=== PATIENT | female | born 1985 | race Caucasian/White ===

== ENCOUNTER 2018-07-12 17:06 | Emergency (ER) | payer BC, OTHER ==
[~2018-07-12] VITALS: Ht 162.6 cm; Wt 73.6 kg
[2018-07-12 17:12] VITALS: Ht 162.6 cm; Wt 73.6 kg
[2018-07-12] MEDS ORDERED: CHOL200056 PO (17:51)
[2018-07-12] MEDS ORDERED: FLUO10TA PO ×2 (17:51→17:55)
[2018-07-12] MEDS ORDERED: PYRI50TA15 PO (17:52)
--- NOTE | 2018-07-12 18:36 | ERD ---
ER Documentation Chief Complaint Chief Complaint dizziness and nausea since tuesday , sent from clinic for low platelets HPI This is a 33-year-old female with a past medical history of depression, anxiety, previous appendectomy who is presenting with 3 to 4 days of feeling generally unwell with gas-like epigastric discomfort, nausea but no vomiting, a few episodes of loose watery brown nonbloody diarrhea, and intermittent lighth eadedness. The patient went to an urgent care today where a CBC was completed. She was reported to have low platelets and instructed to come to the emergency department for further evaluation of this. The patient reports suddenly feeling very anxious with palpitations and lightheadedness. She reports that she had an anxiety attack on the way over here and continues to feel very anxious. The p atient denies any dysuria or hematuria or urgency or frequency. She reports having a test completed at the urgent care, which was negative. She denies any vaginal bleeding or discharge or burning or pain. The patient denies feeling sick recently. The patient denies fever or chills. The patient has had no headache or vision changes. The patient does not endorse neck or back pain. The patient has had no chest pain or trouble breathing. The patient has had no focal deficits. The patient has had no weakness or numbness or tingling to the face or extremities. ROS All systems reviewed and are negative except as per history of present illness. Medications Home Meds Reported Medications Fluoxetine Hcl* (Fluoxetine Hcl*) 10 Mg Tablet, 10 MG PO DAILY, TAB 07/12/18 Pyridoxine Hcl (Vitamin B6) 50 Mg Tab, 50 MG PO DAILY, TAB 07/12/18 Cholecalciferol (Vitamin D3) (Vitamin D-3) 2,000 Unit Tablet, 2000 UNIT PO DAILY, TAB 07/12/18 Discontinued Reported Medications Fluoxetine Hcl* (Prozac*) 10 Mg Tablet, 15 MG PO DAILY, TAB 07/12/18 Allergies Allergies: Coded Allergies: morphine (Verified Allergy, Unknown, 07/12/18) Uncoded Allergies: ALL ANTIBIOTICS (Adverse Reaction, Unknown, NAUSEA, 07/12/18) PMhx/Soc History of Surgery: Yes (APPENDECTOMY) Anesthesia Reaction: No Hx Neurological Disorder: No Hx Respiratory Disorders: No Hx Cardiac Disorders: No Hx Psychiatric Problems: Yes (Depression, anxiety) Hx Miscellaneous Medical Probl: No Hx Alcohol Use: No Hx Substance Use: No Hx Tobacco Use: No Smoking Status: Never smoker FmHx Family History: No diabetes Physical Exam Vitals Vital Signs Date Temp Pulse Resp B/P (MAP) Pulse Ox O2 O2 Flow FiO2 Time Delivery Rate 07/12/18 98.1 75 18 133/84 100 17:12 (100) Physical Exam Const: No acute distress Head: Atraumatic Eyes: Normal Conjunctiva ENT: Normal External Ears, Nose and Mouth. Neck: Full range of motion. No meningismus. Resp: Clear to auscultation bilaterally Cardio: Regular rate and rhythm, no murmurs Abd: Soft, non distended. Mild epigastric discomfort without exquisite tenderness. No guarding or rebound. Normal bowel sounds Skin: No petechiae or rashes Back: No midline or flank tenderness Ext: No cyanosis, or edema Neur: Awake and alert Psych: Anxious Result Diagram: 07/12/18 1754 Results 24 hrs Laboratory Tests Test 07/12/18 17:45 07/12/18 17:51 07/12/18 17:52 Urine Color YELLOW Urine Clarity SLIGHTLY CLOUDY Urine pH 9.0 Urine Specific [place] 1.011 Urine Ketones NEGATIVE mg/dL Urine Nitrite NEGATIVE mg/dL Urine Bilirubin NEGATIVE mg/dL Urine Urobilinogen NEGATIVE mg/dL Urine Leukocyte Esterase NEGATIVE Katelyn/ul Urine Microscopic RBC 1 /HPF Urine Microscopic WBC 3 /HPF Urine Bacteria FEW /HPF Urine Mucus FEW /HPF Urine Hemoglobin NEGATIVE mg/dL Urine Glucose NEGATIVE mg/dL Urine Total Protein NEGATIVE mg/dl White Blood Count 10.2 10^3/ul Red Blood Count 4.38 10^6/ul Hemoglobin 12.0 g/dl Hematocrit 38.8 % Mean Corpuscular Volume 88.6 fl Mean Corpuscular Hemoglobin 27.4 pg Mean Corpuscular 30.9 g/dl Hemoglobin Concent Red Cell Distribution Width 13.2 % Platelet Count 211 10^3/UL Mean Platelet Volume 12.0 fl Immature Granulocytes % 0.400 % Neutrophils % 65.2 % Lymphocytes % 23.0 % Monocytes % 8.9 % Eosinophils % 2.0 % Basophils % 0.5 % Nucleated Red Blood Cells % 0.0 /100WBC Immature Granulocytes # 0.040 10^3/ul Neutrophils # 6.6 10^3/ul Lymphocytes # 2.3 10^3/ul Monocytes # 0.9 10^3/ul Eosinophils # 0.2 10^3/ul Basophils # 0.1 10^3/ul Nucleated Red Blood Cells # 0.0 10^3/ul POC Beta HCG, Qualitative NEGATIVE Procedures/MDM MDM The patient's presentation warrants further investigation. Previous medical records, if available, were reviewed. LABS The patient's laboratory testing was obtained and reviewed. No emergent rosemarie tment was required unless described below. CBC: No E/o systemic infection or severe anemia or thrombocytopenia Chemistry: No E/o severe acidosis or alkalosis or renal failure or liver disease or diabetic ketoacidosis PT/INR: No E/o significant coagulopathy Urine: No E/o acute infection or hematuria TREATMENT/DISPOSITION The patient's primary concern was her reported thrombocytopenia. The patient's CBC was redrawn and the test was repeated. The patient is not thrombocytopenic. The patient presents with mild epigastric abdominal pain with a sensation of gas, nausea and diarrhea. Gastroenteritis is certainly a possibility, though this is a diagnosis of exclusion. The patient was evaluated fully. The patient does not have any evidence of peritonitis. The patient does not have clinical symptoms concerning for mesenteric ischemia or ischemic colitis. The patient does not have right upper quadrant tenderness, and I have low suspicion for gallstones, cholecystitis or biliary colic. The patient does not have any epigastric pain. I have low suspicion for gastritis, PUD or GERD. The patient does not have left upper quadrant tenderness. I have low suspicion for pancreatitis. The patient does not have any right lower quadrant tenderness, or periumbilical tenderness. I have low suspicion for appendicitis. The patient does not have suprapubic tenderness. I have decreased suspicion for cystitis. The patient does not have any left lower quadrant tenderness, and I have low suspicion for diverticulosis or diverticulitis. The patient does not have any flank tenderness. The patient does not have gross hematuria. I have decreased suspicion for nephrolithiasis or renal colic. The patient does not have any palpable pulsatile mass or severe abdominal pain radiating to the back. I have low suspicion for aortic aneurysm, dissection or rupture. The patient does not have any vaginal complaints. I have low suspicion for sexually transmitted infection or PID or tubo-ovarian abscess or ectopic . DISCHARGE Upon reevaluation of the patient, symptoms have improved. No emergent diagnoses were identified. At this time, I feel that the patient stable for discharge. The patient was instructed to follow-up with a primary care physician in 1-3 days. The patient will be given strict precautions with which to return to the emergency department. Prescriptions: Zofran The patient's blood pressure was elevated at greater than 120/80 while in the emergency department. The patient was otherwise stable with no evidence of hypertensive urgency or emergency. The patient does not require admission for blood pressure control. I have discussed with the patient the risks of hypertension. I have instructed the patient to return to the ER for any new or worsening symptoms including chest pain, shortness of breath, headache, blurred vision, confusion, nausea, vomiting or LOC. I have advised the patient to follow up with the primary care physician for outpatient monitoring and treatment for hypertension in 1-3 days. Disclaimer: Inadvertent spelling and grammatical errors are likely due to EHR/dictation software use and do not reflect on the overall quality of patient care. Note that the electronic time recorded on this note does not necessarily reflect the actual time of the patient encounter. Departure Diagnosis: Primary Impression: Encounter for laboratory test Additional Impressions: Nausea Bloating Diarrhea Diarrhea type: unspecified type Qualified Codes: R19.7 - Diarrhea, unspecified Condition: Stable Patient Instructions: Nausea, Treating Diarrhea Additional Instructions: Thank you for for coming to [facility] for your care today. Please ask your nurse or provider if you have questions about your care today and do not leave until all your questions have been answered. Please use any medications given as directed and follow-up with your doctor (or the doctor you were referred to) in the next 1-3 days. If you do not have a primary care doctor you may follow up at the [facility] or [facility] clinic (listed below). You may also use motrin and tylenol as needed for fever and/or pain unless instructed otherwise by your provider or nurse. Indications for more urgent follow-up have been discussed, but you may return to the Emergency Department at ANY time for any worrisome or worsening symptoms. If you have abdominal pain, please know that no test or exam you received is perfect and you should follow up within 8 hours for continued pain. If you had any imaging studies today, such as an X-Ray or CT Scan, these studies will be reviewed later by a radiologist. You will be called if there are important findings that were not identified today, so make sure the contact information you provided at registration is correct. If you received any narcotic pain control medicine today, such as Vicodin, Morphine or Dilaudid, your coordination and judgment may be affected for a number of hours. Please do not drive or operate heavy machinery, and you may want someone to assist you at home. If you were given a prescription for narcotic medication, be aware that it is very addictive- use sparingly and only if necessary. PLEASE SEEK FURTHER EVALUATION AND MANAGEMENT AT YOUR DOCTORS OFFICE WITHIN THE NEXT 1-3 DAYS. IT IS YOUR RESPONSIBILITY TO MAKE AN APPOINTMENT FOR FOLOW-UP CARE. IF YOU HAVE A PRIMARY DOCTOR, PLEASE CALL THEIR OFFICE TO SCHEDULE AN APPOINTMENT FOR FOLLOW UP. IF YOU DO NOT HAVE A PRIMARY DOCTOR YOU CAN CALL OUR PHYSICIAN REFERRAL HOTLINE AT IF YOU CAN NOT AFFORD TO SEE A PHYSICIAN YOU CAN CHOSE FROM THE FOLLOWING [facility] CLINICS: [facility] [address] [facility] [facility] [facility] [address] [facility] [address] [facility] [facility] [address] [facility] [facility] [address] [facility]. [facility]. [address] BIRGIT SPRING MD July 12, 2018 18:35
[2018-07-12 19:21] VITALS: BP 126/80; PULSE 80; RESP 18
== END 2018-07-12 19:22 | disposition home or self-care (01) ==
LOC: E/R 17:06
DX: R11.10 Vomiting, unspecified (principal); R19.7 Diarrhea, unspecified; R14.0 Abdominal distension (gaseous)
CPT/HCPCS: 80053; 81001; 81003; 81025; 85025; 85610; 99283